=== PATIENT | female | born 1990 ===

== ENCOUNTER 2017-01-10 06:27 | Emergency (ER) | payer OTHER ==
[~2017-01-10] VITALS: Ht 154.9 cm; Wt 99.8 kg
[~2017-01-10 06:27] MED LIST: BACTRIM DS 8001 TA1 PO; CYCLOBENZAPRINE5 M3 PO
[2017-01-10 07:10] LABS: BILIRUBIN NEGATIVE (NEGATIVE); BLOOD 3+ (NEGATIVE); CLARITY SL CLOUDY (CLEAR); COLOR STRAW (YELLOW); GLUCOSE NEGATIVE (NEGATIVE); KETONE NEGATIVE (NEGATIVE); LEUKO ESTERASE NEGATIVE (NEGATIVE); NITRITE NEGATIVE (NEGATIVE); PH 5.5 (5.0-9.0); PROTEIN NEGATIVE (NEGATIVE); SPECIFIC GRAVITY <= 1.005 (1.005-1.030); UROBILINOGEN 0.2 E.U./dl (0.2-1.0)
[2017-01-10 07:21] LABS: BASO % 0.3 % (0.0-1.0); EOS # 0.2 10*3/uL (0.0-0.4); EOS % 1.3 % (1.0-4.0); HEMATOCRIT 39.3 % (37.0-47.0); HEMOGLOBIN 12.9 g/dl (12.0-16.0); LYMPH # 2.5 10*3/uL (1.3-4.4); LYMPH % 20.8 % (27.0-41.0); MEAN CELL VOLUME 93.1 fl (81.0-99.0); MEAN CORPUSCULAR HGB 30.6 pg (27.0-31.0); MEAN CORPUSCULAR HGB CONC 32.8 g/dl (33.0-37.0); MEAN PLATELET VOLUME 10.5 fl (9.6-12.3); MONO # 0.7 10*3/uL (0.1-1.0); MONO % 5.9 % (3.0-9.0); NEUT # 8.5 10*3/uL (2.3-7.9); NEUT % 71.4 % (47.0-73.0); PLATELET COUNT AUTOMATED 268 10*3/uL (130-400); RED BLOOD COUNT 4.22 10*6/uL (4.10-5.10); RED CELL DISTRI WIDTH 12.5 % (0-14.5); WHITE BLOOD COUNT 11.9 10*3/uL (4.8-10.8)
[2017-01-10 07:30] LABS: BACTERIA TRACE; RBC TNTC rbc/hpf (0-2); URINE REFLEX COMMENT YES (NO)
[2017-01-10 07:31] LABS: INTERNATIONAL NORM RATIO 0.9 (2.0-3.5); PROTHROMBIN TIME 9.8 SECONDS (9.0-12.4)
[2017-01-10 07:35] LABS: ALKALINE PHOSPHATASE 67 U/L (45-117); BILIRUBIN, TOTAL 0.2 mg/dl (0.2-1.0); BUN 6 mg/dl (7-24); CARBON DIOXIDE 30 mmol/L (21-32); CHLORIDE 106 mmol/L (98-107); EST GLOM FILT AFRICAN AMERICAN > 60 ml/min; GLUCOSE 104 mg/dL (65-99); SGOT/AST 13 IU/L (3-35); SGPT/ALT 19 U/L (12-78); SODIUM 144 mmol/L (136-145); TOTAL PROTEIN 6.8 gm/dL (6.4-8.2)
[2017-01-10] MEDS ORDERED: Motrin,Rufen800 MG PO (08:13)
== END 2017-01-10 08:27 | disposition home or self-care (01) ==
LOC: ED 06:27
PROVIDERS: Emergency Medicine Emergency Medical Services
DX: O03.9 Complete or unspecified spontaneous abortion without complication (principal)

== ENCOUNTER → 2019-07-08 | Outpatient (CLI) | payer OTHER ==
[~2019-07-08] MED LIST changes: +Motrin,Rufen800 MG PO
== END | disposition home or self-care (01) ==
LOC: LAB 07:02
DX: B18.9 Chronic viral hepatitis, unspecified (principal); R73.09 Other abnormal glucose; Z20.5 Contact with and (suspected) exposure to viral hepatitis